=== PATIENT | female | born 1965 | race Two or more races ===

== ENCOUNTER 2024-11-06 11:08 | Outpatient (AMB) | payer MEDICAID, SELFPAY ==
--- NOTE | 2024-11-06 11:40 | ORTHONT_ITS ---
Vital signs 11/06/24 11:41 Height 1.57 m Height Method Stated Weight 81.647 kg Weight Measurement Method Stated by Patient BMI 32.9 BP 129/72 Blood Pressure Source Automatic Cuff Blood Pressure Location Left Upper Arm Position Sitting Respiration 16 Pulse 103 H Pulse Source Monitor Temp 97.1 F Temp Source Temporal Artery Scan Pulse Oximetry (%) 95 Oxygen Delivery Method Room Air Med/Allergies Allergies & Medications Allergies No Known Allergies Allergy (Verified 11/02/23 18:46) Exam Exam Patient is in no acute distress and is cooperative with the examination today. Breathing is nonlabored. In no respiratory distress. Bilateral extremities were evaluated and demonstrates sensation intact to light touch. Palpable pedal pulses are present. No significant edema is present. No paraspinal tenderness is present. The left hip demonstrates no pain with logroll. Patient has flexion to 90 degrees, internal rotation to 20 degrees, external rotation to 20 degrees, abduction of 40 degrees, and adduction of 20 degrees. Patient has a negative stinchfield. The patient is nontender to palpation. The right hip is tender to palpation. Right hip x-rays are nonweightbearing. This is from [facility]. The acetabular component has been pulled the from bone. Assessment and Plan Problem List (1) Avascular necrosis of bone of right hip: Status: Acute Plan: Patient is a pleasant 58-year-old female with avascular necrosis of the right hip of significant seUnderwent a right spacer placement. The right Cemented acetabular component is loose. I discussed with the patient that this will need a revision total hip replacement. The Loosening likely happened due to insufficient bone stock as this is repeatedly happening. I recommended the patient go to a tertiary care center. This surgery is too big for a [facility] setting. I recommend that the patient be referred to a tertiary care center. I also discussed with the patient that she is at high risk for complications given her history. (2) Acute pain of right hip: Status: Acute Office Procedures GNS Level of Care Nursing/Assessment Patient Status: Established Patient Nursing Assessment/Reassesment: Medication Reconciliation, Update PMH in EMR and Vital Signs Coordination of Care: Complex Care and Chronic Disease 1-5, Education Complex Pt/Fam, Consent,records obtained, informed consent, 1 Ins Authorization and Staf f clarify orders Established Patient Charge Established Patient Point Assignment: 105 MA Intake Visit Data Collection New Patient or Established: New Patient (never been to [facility]) Reason for Visit:: RT HIP PAIN Seen by Clinical Staff ONLY (RN/MA): No Supervisor Metal Hanging Required: No PCP or OBGYN visit in last 3 months: Yes Do You Feel Safe at Home: Yes Questionairres Past Medical History Past Medical History Have you ever been diagnosed with any of the following: Neurological Problems Seizures: No Cardiology Problems Congestive Heart Failure: No Hypertension: Yes Respiratory Problems Chronic Obstructive Pulmonary Disease (COPD): No Asthma: No Stomache/Intestinal Problems Hepatitis: No Gall Bladder Disease: No Obesity: Yes Genital/Urinary Problems Renal Disease: No Reproductive Problems Previous Pregnancies: Yes Musculoskeletal Problems Arthritis: Yes Endocrine Problems Diabetes Mellitus Type 1: No Diabetes Mellitus Type 2: No Blood Problems Sickle Cell Disease: No Other Problems Hospitalization: Yes Shingles: No Blood Transfusions: No Blood Transfusion Reaction: No Anesthesia Reactions: No MRSA: No Chicken Pox: Yes Measles: Yes Cancer: No Subjective Visit Visit for: new patient and hip Immunization / Flu Flu Vaccine in the Last 12 Months: No Flu Vaccine Exclusion Criteria: Refused by Patient History of Present Illness Chief complaint: RT HIP PAIN Urmila is a 59-year-old female with avascular necrosis versus a septic hip who underwent a spacer placement. This was done in [place]. It subsequently dislocated and was revised. The repeat spacer dislocated again. The patient Did have a drug test that was positive. I originally saw her and sent her to [place] as she has severe acetabular wear and I thought she would be at high risk for surgery. Unfortunately, she did have complications with her more recent surgery. I discussed with her that her surgery was high risk and thus patient dislocation can be common when there is very little bone stock present. At this point in time, she will need a tertiary care center as I referred her to a tertiary care center before. This [facility] not be [facility]. I tried to explain this to the patient and family Personal History BMI Counceling provided: Yes Pain Pain level (0-10): 10 Pain duration: CONSTANT Pain location: inside (medial) and outside (lateral) Pain quality: aching Associated signs & symptoms: numbness Ambulatory data Ambulatory device: other (specify) (WHEELCHAIR) Review of Systems Review of Systems: All systems negative unless otherwise noted in HPI.
[2024-11-06 11:41] VITALS: BP 129/72; PULSE 103; RESP 16; TEMP 36.2; O2SAT 95; BMI 32.9
== END 2024-11-06 11:55 | disposition home or self-care (01) ==
PROVIDERS: PCP Family Medicine; Referring Provider Family Medicine; Supervising Provider Orthopaedic Surgery Adult Reconstructive Orthopaedic Surgery; Visit Provider Orthopaedic Surgery Adult Reconstructive Orthopaedic Surgery
DX: M87.88 Other osteonecrosis, other site (principal); M25.551 Pain in right hip; I10 Essential (primary) hypertension
CPT/HCPCS: 99213; G0463

== ENCOUNTER → 2025-03-04 | Outpatient (CLI) | payer MEDICAID, SELFPAY ==
--- NOTE | 2025-03-04 15:37 | XR_ITS ---
Examination: Foot bilateral, 6 views Technique: AP, oblique, lateral views foot total 6 views Date and time of exam: March 04, 2025 1704 hrs. Indications: Bilateral foot pain 5 years. Findings: Bilateral prominent bunion deformities Bilateral moderate narrowing first metatarsophalangeal joints No fracture or dislocation involving either foot Mild pes planus Impression: Bilateral prominent bunion deformities Bilateral moderate narrowing first metatarsophalangeal joints
== END | disposition home or self-care (01) ==
LOC: SMRI 15:35 → SDIM 15:39
PROVIDERS: PCP Family Medicine; Referring Provider Podiatrist; Visit Provider Podiatrist
DX: M21.612 Bunion of left foot (principal); M21.611 Bunion of right foot; M25.872 Other specified joint disorders, left ankle and foot; M25.871 Other specified joint disorders, right ankle and foot
CPT/HCPCS: 73630